=== PATIENT | male | born 1950 | race Caucasian/White ===

== ENCOUNTER 2021-08-19 10:30 | Emergency (ER) | payer MEDICARE, OTHER ==
[2021-08-19] MEDS ORDERED: HYDROCHLOROTH12.5 MG PO (12:03)
== END 2021-08-19 12:38 | disposition home or self-care (01) ==
LOC: ER1 10:30
PROVIDERS: Emergency Medicine
DX: I10 Essential (primary) hypertension (principal); F41.9 Anxiety disorder, unspecified
CPT/HCPCS: 80048; 84484; 93005; 99283; Q0177